=== PATIENT | female | born 1970 | race Caucasian/White ===

== ENCOUNTER 2020-09-29 11:16 | Emergency (ER) | payer MEDICAID ==
[~2020-09-29] VITALS: Ht 165.1 cm; Wt 68.0 kg
[2020-09-29 11:25] VITALS: BP_SYST 111
[2020-09-29] MEDS ORDERED: ONDANSETRON HCL 4 MG/2 ML VIAL IVP ONE (12:15)
[2020-09-29] MEDS ORDERED: MORPHINE 4 MG/ML INJ. SYRINGE IVP ONE (12:15)
[2020-09-29] MEDS ORDERED: MORPHINE 4 MG/ML INJ. SYRINGE ONE (12:23)
[2020-09-29 12:59] LABS: BASOPHILS # (AUTO) 0.1 K/uL (0.0-0.2); BASOPHILS % (AUTO) 1.2 % (0.0-2.0); EOSINOPHILS % (AUTO) 0.1 % (0.0-4.0); HEMATOCRIT 38.7 % (36-48); HEMOGLOBIN 12.5 g/dL (12.0-16.0); LYMPHOCYTES % (AUTO) 23.4 % (20.5-51.5); MEAN CORPUSCULAR HEMOGLOBIN 27 pg (27-31); MEAN CORPUSCULAR HGB CONC 32 % (32-36); MEAN CORPUSCULAR VOLUME 83 fL (79.0-98.0); MONOCYTES # (AUTO) 0.2 K/uL (0.0-1.0); MONOCYTES % (AUTO) 5.2 % (1.7-9.3); NEUTROPHILS # (AUTO) 3.1 K/uL (1.8-7.7); NEUTROPHILS % (AUTO) 70.1 % (40.0-70.0); PLATELET COUNT (AUTO) 251 K/uL (130-430); RED BLOOD CELL COUNT(AUTO) 4.64 MIL/uL (4.2-6.2); RED CELL DISTRIBUTION WIDTH 14.6 % (9.0-15.0); WHITE BLOOD COUNT (AUTO) 4.4 K/uL (4.8-10.8)
[2020-09-29 13:07] LABS: CALCIUM 8.3 mg/dL (8.4-11.0); CREATININE 0.8 mg/dL (0.55-1.30); POTASSIUM 4.3 mmol/L (3.5-5.1)
[2020-09-29 13:13] LABS: ALBUMIN 3.1 g/dL (3.4-4.8); TOTAL BILIRUBIN 0.3 mg/dL (0.0-1.0)
[2020-09-29] MEDS ORDERED: cefTRIAXone 250 MG VIAL IM ONE (13:15)
[2020-09-29] MEDS ORDERED: cefTRIAXone 250 MG VIAL ONE (13:51)
[2020-09-29 14:05] LABS: BILIRUBIN,URINE NEGATIVE (NEGATIVE); BLOOD, URINE NEGATIVE (NEGATIVE); CLARITY/URINE CLEAR (CLEAR); COLOR,URINE YELLOW (YELLOW); GLUCOSE,URINE NEGATIVE (NEGATIVE); KETONES,URINE NEGATIVE (NEGATIVE); LEUKOCYTE ESTERASE ,URINE NEGATIVE (NEGATIVE); NITRITE, URINE NEGATIVE (NEGATIVE); PH,URINE 5.5 (5.0-8.0); PROTEIN URINE NEGATIVE (NEGATIVE); UROBILINOGEN,URINE 0.2 (0.2-1.0)
[2020-09-29] MEDS ORDERED: DOXY100T2 PO (14:24)
[2020-09-29 15:29] VITALS: BP_SYST 109
== END 2020-09-29 15:29 | disposition home or self-care (01) ==
LOC: SED 11:16
DX: N93.9 Abnormal uterine and vaginal bleeding, unspecified (principal)
CPT/HCPCS: 36415; 76830; 76857; 80053; 81003; 83690; 87210; 85025; 96372; 96374; 96375; 99285; J0696; J2270; J2405

== ENCOUNTER 2020-10-13 14:46 | Emergency (ER) | payer MEDICAID ==
[~2020-10-13] VITALS: Ht 165.1 cm; Wt 68.0 kg
[~2020-10-13 14:46] MED LIST: DOXY100T2 PO
[2020-10-13 15:00] VITALS: BP_SYST 121
[2020-10-13] MEDS ORDERED: MORPHINE 4 MG/ML INJ. SYRINGE IVP ONE (15:15)
[2020-10-13 15:32] LABS: BILIRUBIN,URINE NEGATIVE (NEGATIVE); BLOOD, URINE NEGATIVE (NEGATIVE); COLOR,URINE YELLOW (YELLOW); GLUCOSE,URINE NEGATIVE (NEGATIVE); KETONES,URINE NEGATIVE (NEGATIVE); LEUKOCYTE ESTERASE ,URINE NEGATIVE (NEGATIVE); NITRITE, URINE NEGATIVE (NEGATIVE); PH,URINE 7.5 (5.0-8.0); PROTEIN URINE NEGATIVE (NEGATIVE)
[2020-10-13 15:42] LABS: CLARITY/URINE HAZY (CLEAR)
[2020-10-13] MEDS ORDERED: KETOROLAC TROMETHAMINE 15 MG VIAL IVP ONE (15:45)
[2020-10-13 15:46] LABS: BACTERIA,URINE FEW /HPF (None Seen); MUCUS,URINE None Seen /LPF (None Seen); RBC,URINE 0-3 /HPF (0-3); WBC,URINE 0-3 /HPF (0-3)
[2020-10-13 15:46] LABS: HEMOGLOBIN 12.4 g/dL (12.0-16.0); MEAN CORPUSCULAR HGB CONC 33 % (32-36); RED CELL DISTRIBUTION WIDTH 14.3 % (9.0-15.0); WHITE BLOOD COUNT (AUTO) 4.7 K/uL (4.8-10.8)
[2020-10-13 15:54] LABS: BASOPHILS % (AUTO) 0.7 % (0.0-2.0); EOSINOPHILS % (AUTO) 0.7 % (0.0-4.0); HEMATOCRIT 38.2 % (36-48); LYMPHOCYTES # (AUTO) 1.6 K/uL (1.0-5.5); LYMPHOCYTES % (AUTO) 33.8 % (20.5-51.5); MEAN CORPUSCULAR HEMOGLOBIN 27 pg (27-31); MEAN CORPUSCULAR VOLUME 84 fL (79.0-98.0); MONOCYTES # (AUTO) 0.4 K/uL (0.0-1.0); MONOCYTES % (AUTO) 7.7 % (1.7-9.3); NEUTROPHILS # (AUTO) 2.7 K/uL (1.8-7.7); NEUTROPHILS % (AUTO) 57.1 % (40.0-70.0); PLATELET COUNT (AUTO) 285 K/uL (130-430); RED BLOOD CELL COUNT(AUTO) 4.56 MIL/uL (4.2-6.2)
[2020-10-13 15:57] LABS: CALCIUM 8.2 mg/dL (8.4-11.0); CREATININE 0.82 mg/dL (0.55-1.30); POTASSIUM 3.8 mmol/L (3.5-5.1)
[2020-10-13 16:04] LABS: TOTAL BILIRUBIN 0.3 mg/dL (0.0-1.0)
[2020-10-13 16:05] LABS: ALBUMIN 3.4 g/dL (3.4-4.8); BILIRUBIN,DIRECT 0.1 mg/dL (0.0-0.3)
[2020-10-13] MEDS ORDERED: HYDROcodone/ACETAMIN 7.5-325 MG TAB PO ONE (17:45)
[2020-10-13 17:58] VITALS: BP_SYST 121
[2020-10-16 01:06] LABS: CHLAMYDIA TRACHOMATIS NAA Negative (Negative); NEISSERIA GONORRHOEAE NAA Negative (Negative)
== END 2020-10-13 17:58 | disposition home or self-care (01) ==
LOC: SED 14:46
DX: N76.0 Acute vaginitis (principal)
CPT/HCPCS: 36415; 76830; 76857; 80048; 80076; 81000; 83690; 84702; 85025; 87086; 87210; 87491; 87591; 96374; 96375; 99284; J1885; J2270

== ENCOUNTER 2024-05-14 14:47 | Emergency (ER) | payer BC, MEDICAID ==
[~2024-05-14] VITALS: Ht 165.1 cm; Wt 72.6 kg
[2024-05-14 14:47] VITALS: BP_SYST 112; PULSE 72; RESP 18; TEMP 97.5; O2SAT 97
[2024-05-15] MEDS ORDERED: ACET1TAB93 PO (18:25)
[2024-05-15] MEDS ORDERED: CLIN-142 PO (18:25)
[2024-05-15] MEDS ORDERED: HYDR-3917 PO (19:49)
== END 2024-05-14 16:00 | disposition left against medical advice (07) ==
LOC: SED 14:47
DX: K08.89 Other specified disorders of teeth and supporting structures (principal); Z53.21 Procedure and treatment not carried out due to patient leaving prior to being seen by health care provider

== ENCOUNTER 2024-05-15 13:44 | Emergency (ER) | payer BC ==
[~2024-05-15] VITALS: Ht 165.1 cm; Wt 72.6 kg
[2024-05-15 13:49] VITALS: BP_SYST 111; PULSE 77; RESP 22; TEMP 98.3; O2SAT 98
[2024-05-15] MEDS ORDERED: CLIN-142 PO (18:25)
[2024-05-15] MEDS ORDERED: ACET1TAB93 PO (18:25)
[2024-05-15 18:31] VITALS: BP_SYST 116; PULSE 62; RESP 18; TEMP 98.3; O2SAT 98
[2024-05-15] MEDS ORDERED: HYDR-3917 PO (19:49)
== END 2024-05-15 18:31 | disposition home or self-care (01) ==
LOC: SED 13:44
DX: K04.7 Periapical abscess without sinus (principal); Z79.899 Other long term (current) drug therapy
CPT/HCPCS: 99283